=== PATIENT | female | born 2005 | race Caucasian/White ===

== ENCOUNTER 2024-03-03 20:57 | Inpatient (IN) | payer OTHER ==
--- NOTE | ~2024-03-03 | OR ---
[facility] [address], [place] [address] Draft DATE OF OPERATION: 03/04/2024 SURGEON: Temo Massey DO PREOPERATIVE DIAGNOSES: 1. Intrauterine at 34 weeks gestation. 2. Non-reassuring heart tracing. 3. Likely placental abruption. POSTOPERATIVE DIAGNOSES: 1. Intrauterine at 34 weeks gestation. 2. Placental abruption. 3. Nonreassuring heart tracing. PROCEDURES PERFORMED: Primary low transverse delivery. GUN BARREL FINISHER: Laure Hutson MD ANESTHESIA: Spinal with postoperative TAP block. ESTIMATED BLOOD LOSS: 800 mL. DRAINS: Brandon to gravity. FINDINGS: Delivery of viable female weighing 2280 g with Apgars of 2, 5 and 7. Hysterotomy was consistent with abruption noted. Delivery in the LOT position with no nuchal cord. Scant bleeding following delivery and an otherwise normal uterus, tubes, and ovaries. COMPLICATIONS: Abruption as above. INDICATIONS: Ms. Son is a very pleasant 18-year-old, G1, P0, with intrauterine at 34 PATIENT NAME: FREYA SON OPERATIVE REPORT DATE OF : 04 REPORT #: [id number] PHYSICIAN: TEMO MASSEY DO (JD) PCP: NO PRIMARY CARE PHYSICIAN REPORT IS CONFIDENTIAL AND NOT TO BE RELEASED WITHOUT AUTHORIZATION [facility] [address] [place] [id number] Draft weeks gestation, who presents to the Center for complaining of contractions and a scant amount of bleeding. The patient reports no abdominal trauma, but reports an increasing back pain and [place] tight contractions throughout the day. She soaked in an outdoor pool at home and then saw small amount of spotting and presented to [facility] for further evaluation. The patient was noted to be 0.5 cm dilated and was having irregular contractions. heart tracing had been overall reassuring and then the patient developed decelerations. I was called, evaluated the patient. An ultrasound was performed that demonstrated an intrauterine debris consistent with an abruption. Recommended primary low transverse delivery. Risks, benefits, and alternatives were discussed in detail with the patient. The patient understands and wishes to proceed with the procedure. TECHNIQUE: The patient is taken to the OR where a time-out was performed to confirm correct patient and correct procedure. Spinal anesthesia was adequately established. The patient was prepped and draped in the supine position with a bump in her right hip. Ancef 2 g preoperatively were given and no heparin was indicated. Brandon catheter was inserted. Once spinal was noted to be adequate, a Pfannenstiel skin incision was made approximately 2-3 cm above the pubic symphysis and carried down to the fascia. The fascia was nicked in the midline. Fascial incision was extended bilaterally using curved Hernandez scissors. Fascia was grasped with Benjamin's, elevated, and the underlying rectus dissected off bluntly and sharply. The rectus was divided in the midline with blunt dissection and peritoneal incision was extended cephalad caudad using blunt and sharp dissection. Leeroy self retractor was placed and the lower uterine segment identified. Hysterotomy was performed using a surgical scalpel and a large amount of amniotic fluid mixed with blood and blood clot was returned consistent with an abruption. Hysterotomy was extended bilaterally using blunt dissection. The surgeon's hand was placed in the uterine cavity and the quickly delivered with the assistance of fundal pressure. Cord was doubly clamped and cut and the handed to the waiting pediatric team for further care. The placenta was expressed, intact with a centrally inserted three-vessel cord and handed to the OR crew with concern for potential ongoing bleeding. The cord gases were ordered. The uterus was cleared of any remaining products of conception or clot and bleeding was scant at this point, with the uterus firm. Pitocin was administered per protocol. Hysterotomy was repaired in two layers using 0 Monocryl, the first being a running locked layer and the second being a running imbricating layer in the standard fashion. Excellent hemostasis was appreciated. The pelvis was irrigated and found to be hemostatic. Normal uterus, tubes, and ovaries were appreciated. The Leeroy self retractor was removed and hemostasis again appreciated. The peritoneum was reapproximated using 2-0 Vicryl in a running nonlocked manner. Rectus was made hemostatic with judicious use of Bovie electrocautery and the rectus muscles were plicated loosely in the midline using 0 Vicryl. Fascia was then reapproximated using 0 Vicryl in a running nonlocked manner. PATIENT NAME: FREYA SON OPERATIVE REPORT DATE OF : 04 REPORT #: [id number] PHYSICIAN: TEMO MASSEY (JUANA) DO PCP: NO PRIMARY CARE PHYSICIAN REPORT IS CONFIDENTIAL AND NOT TO BE RELEASED WITHOUT AUTHORIZATION [facility] [address], [place] [address] Draft Subcu was irrigated, made hemostatic with judicious use of Bovie electrocautery and reapproximated using 3-0 Vicryl. Skin was reapproximated using surgical boston and the uterus was crede'd for scant amount of blood. The patient remained in the OR for postoperative TAP blocks. At this point, I was alerted by the OR staff. The cord gases were unable to be obtained. Upon evaluation of the placenta, the cord had been clamped at both ends and no blood was noted in the cord at this point, and cord gases were unable to be drawn. Placenta blood was drawn for blood type. Sponge, needle, and instrument counts correct x2 at the end of the procedure. Dr. Hutson was present and participated in all real portions of the procedure. Temo Massey DO JMarcW/SONAML /[id number] Copies: ~ PATIENT NAME: FREYA SON OPERATIVE REPORT DATE OF : 04 REPORT #: [id number] PHYSICIAN: TEMO MASSEY DO (JD) PCP: NO PRIMARY CARE PHYSICIAN REPORT IS CONFIDENTIAL AND NOT TO BE RELEASED WITHOUT AUTHORIZATION
[2024-03-03] MEDS ORDERED: BETAMETHASONE SOD PHOS/ACETATE 6 MG/ML ML IM SCH (23:30)
[2024-03-03] MEDS ORDERED: MAGNESIUM HYDROXIDE/AL HYDROX 30 ML CUP PO PRN (23:45)
[2024-03-03] MEDS ORDERED: LACTATED RINGER'S 1,000 ML IV SCH (23:45)
[2024-03-03] MEDS ORDERED: OXYTOCIN/DEXTROSE 5% 20 UNITS/100 ML BAG IV SCH (23:45)
[2024-03-03] MEDS ORDERED: LACTATED RINGER'S 1,000 ML IV PRN (23:45)
[2024-03-03] MEDS ORDERED: CALCIUM CARBONATE 500 MG CHEW PO PRN (23:45)
[2024-03-03 23:54] LABS: EOSINOPHILS 0.4 % (0-6)
[2024-03-03 23:56] LABS: BASOPHILS 0.3 % (0-2); HEMATOCRIT 28.1 % (35.0-50.0); HEMOGLOBIN 9.5 g/dL (12.0-18.0); LYMPHOCYTES 18.1 % (24-44); MCH 30.2 (27-36); MCV 88.9 fl (81-99); MONOCYTES 8.7 % (0-12); NEUTROPHILS 72.5 % (39-80); PLATELET COUNT 182 K/uL (140-440); RBC 3.16 M/ul (4.3-5.7)
[2024-03-04 00:12] LABS: AMPHETAMINES, URINE NEGATIVE (NEGATIVE); BARBITURATES, URINE NEGATIVE (NEGATIVE); BENZODIAZEPINE, URINE NEGATIVE (NEGATIVE); BUPRENORPHINE, URINE NEGATIVE (NEGATIVE); CANNABINOID, URINE NEGATIVE (NEGATIVE); COCAINE, URINE NEGATIVE (NEGATIVE); ECSTASY, URINE NEGATIVE (NEGATIVE); FENTANYL, URINE NEGATIVE (NEGATIVE); METHADONE, URINE NEGATIVE (NEGATIVE); OPIATES, URINE NEGATIVE (NEGATIVE); OXYCODONE, URINE NEGATIVE (NEGATIVE); PHENCYCLIDINE, URINE NEGATIVE (NEGATIVE)
[2024-03-04] MEDS ORDERED: ondansetron HCL 4 MG/2 ML VIAL ONE (00:29)
[2024-03-04] MEDS ORDERED: DEXAMETHASONE SOD PHOS 4 MG/ML VIAL ONE ×2 (00:29→11:39)
[2024-03-04] MEDS ORDERED: SUCCINYLCHOLINE IN 0.9% NACL 200 MG/10 ML SYRINGE ONE (00:29)
[2024-03-04] MEDS ORDERED: propofoL 200 MG/20 ML VIAL ONE (00:29)
[2024-03-04] MEDS ORDERED: KETOROLAC TROMETHAMINE 30 MG/ML VIAL ONE (00:29)
[2024-03-04] MEDS ORDERED: OXYTOCIN 10 UNITS/ML VIAL ONE ×2 (00:29→01:17)
[2024-03-04] MEDS ORDERED: LIDOCAINE HCL 2% 5 ML SDV ONE ×2 (00:29→01:38)
[2024-03-04] MEDS ORDERED: BUPIVACAINE 0.75% IN DEXTROSE 2 ML AMP ONE (00:29)
[2024-03-04] MEDS ORDERED: fentaNYL citrate 100 MCG/2 ML VIAL ONE (00:30)
[2024-03-04] MEDS ORDERED: CEFAZOLIN SODIUM 2 GM/20 ML SYR IV SCH (00:40)
[2024-03-04] MEDS ORDERED: LACTATED RINGER'S 1,000 ML IV PRN (00:45)
[2024-03-04] MEDS ORDERED: SOD+POT BICARB/CITRIC ACID 2 EA TABLET.EFF PO ONE (00:45)
[2024-03-04 01:00] LABS: ABO O; ANTIBODY SCREEN POSITIVE; RH NEGATIVE
[2024-03-04 01:01] LABS: ANTIBODY IDENTIFICATION ANTI-D
[2024-03-04] MEDS ORDERED: SODIUM CHLORIDE 0.9% 20 ML IV ONE ×2 (01:06→11:39)
[2024-03-04] MEDS ORDERED: ePHEDrine sulfate 50 MG/ML AMP ONE (01:06)
[2024-03-04] MEDS ORDERED: PHENYLEPHRINE HCL 10 MG/ML VIAL ONE (01:06)
[2024-03-04] MEDS ORDERED: ACETAMINOPHEN 1,000 MG/100 ML VIAL ONE (01:12)
[2024-03-04] MEDS ORDERED: MIDAZOLAM HCL 2 MG/2 ML VIAL ONE (01:17)
[2024-03-04 01:51] LABS: PARTIAL THROMBOPLASTIN TIME 27.1 Sec (22.9-41.3)
[2024-03-04 01:52] LABS: INR 0.95 (0.80-1.30)
[2024-03-04] MEDS ORDERED: bisacodyL 10 MG SUPP PR PRN (02:15)
[2024-03-04] MEDS ORDERED: OXYTOCIN/0.9 % SODIUM CHLORIDE 500 ML IV SCH (02:15)
[2024-03-04] MEDS ORDERED: HYDROCODONE/ACETA 5/325 TAB PO PRN (02:15)
[2024-03-04] MEDS ORDERED: OXYCODONE/APAP 5/325 TAB PO PRN (02:15)
[2024-03-04] MEDS ORDERED: PROMETHAZINE HCL 25 MG TAB PO PRN (02:15)
[2024-03-04] MEDS ORDERED: PROMETHAZINE HCL 25 MG SUPP PR PRN (02:15)
[2024-03-04] MEDS ORDERED: OXYCODONE HCL 5 MG TAB PO PRN (02:15)
[2024-03-04] MEDS ORDERED: ondansetron HCL 4 MG/2 ML VIAL IV PRN ×3 (02:15→02:30)
[2024-03-04] MEDS ORDERED: METOCLOPRAMIDE HCL 10 MG/2 ML SDV IV PRN (02:15)
[2024-03-04] MEDS ORDERED: PROCHLORPERAZINE EDISYLATE 10 MG/2 ML VIAL IV PRN (02:15)
[2024-03-04] MEDS ORDERED: LACTATED RINGER'S 1,000 ML IV SCH (02:16)
[2024-03-04 02:24] LABS: HEMATOCRIT 25.7 % (35.0-50.0); HEMOGLOBIN 8.6 g/dL (12.0-18.0); MCH 29.8 (27-36); MCHC 33.4 g/dl (30-36); MCV 89.4 fl (81-99); RBC 2.88 M/ul (4.3-5.7); RDW 13.1 (10.5-15.0)
[2024-03-04] MEDS ORDERED: KETOROLAC TROMETHAMINE 30 MG/ML VIAL IV PRN (02:30)
[2024-03-04] MEDS ORDERED: IBLOOD GLUCOSE TEST STRIP 1 EA TEST VI PRN (02:30)
[2024-03-04] MEDS ORDERED: fentaNYL citrate 50 MCG/ML SDV IV PRN (02:30)
[2024-03-04] MEDS ORDERED: NALOXONE HCL 0.4 MG SYR IV PRN ×2 (02:30)
[2024-03-04] MEDS ORDERED: diphenhydrAMINE HCL 50 MG/ML VIAL IV PRN (02:30)
[2024-03-04] MEDS ORDERED: MORPHINE SULFATE 4 MG/ML VIAL IV PRN (02:30)
[2024-03-04] MEDS ORDERED: HYDROmorphone HCL 1 MG/ML SYR IV PRN (02:30)
--- NOTE | 2024-03-04 03:02 | NUR ---
03/04/24 0302 Diamond Tsang 0206 PT ARRIVED IN PACU WIDE AWAKE AND ASKING TO SEE BABY. FAMILY AT BEDSIDE. 0215 FOB AT BEDSIDE AND TALKING TO PT ABOUT BABY GOING TO [facility]. GRANDMA GOING WITH BABY. 0230 DR QUARLES AT BEDSIDE TALKING WITH FAMILY. ALL QUESTIONS ANSWERED. 0240 REPORT GIVEN TO [facility] RN IN NURSERY. BED PLUGGED IN.
[2024-03-04 06:37] VITALS: BP 117/60
[2024-03-04] MEDS ORDERED: SIMETHICONE 125 MG TABLET CHEWABLE PO SCH (07:00)
--- NOTE | 2024-03-04 07:29 | PR ---
[facility] [address], [place] [address] Signed PP Progress Notes Datetime Report Generated by CPN: 03/04/2024 07:29 SUBJECTIVE: [id number] Pain: Within Normal Limits Flatus: Yes Bowel Movement: No Vital Signs: [id number] Vital Signs: Reviewed; Within Normal Limits EXAM: Ongoing Cardiovascular: Normal Respiratory: Normal Abdomen/Uterus: Normal Lochia: Not Done Vulva/Perineum: Not Done Breasts: Not Done CVA Tenderness: Normal Extremities: Normal Incision: Normal Progress: Not Applicable Exam Comments: Fundus firm U-2 nontender. Incision bandaged and dry IMPRESSION/PLAN/PROCEDURES: [id number] Impression: Normal Progression Plan: Continue Present Management Other Plans: Awaiting morning CBC Progress Notes: Pt seen and examined. Doing well. Pain well controlled and lochia minimal. Brandon in place. No / pumping as transferred to NICU but will initiate pumping this AM. No fevers/chills. Awaiting CBC this AM. Continue routine care. Will check on pt later today. Anticipate d/c tomorrow. Signing Physician: Temo Massey DO Copies: ~ *Electronically Signed* 03/04/24 0729 TEMO MASSEY (JUANA) DO PATIENT NAME: FREYA SON PROGRESS NOTE DATE OF : 04 PHYSICIAN: TEMO MASSEY (JD) DO RPT #: [id number] REPORT IS CONFIDENTIAL AND NOT TO BE RELEASED WITHOUT AUTHORIZATION
[2024-03-04 07:37] LABS: HEMATOCRIT 27.3 % (35.0-50.0); HEMOGLOBIN 9.4 g/dL (12.0-18.0); MCH 30.5 (27-36); MCHC 34.5 g/dl (30-36); MCV 88.5 fl (81-99); RBC 3.08 M/ul (4.3-5.7); RDW 13.1 (10.5-15.0)
[2024-03-04] MEDS ORDERED: KETOROLAC TROMETHAMINE 30 MG/ML VIAL IV SCH (08:00)
[2024-03-04] MEDS ORDERED: SENNOSIDES/DOCUSATE 1 EA TAB PO SCH (09:00)
[2024-03-04] MEDS ORDERED: LIDOCAINE HCL 2% 20 MG/ML VIAL INJ ONE (11:39)
[2024-03-04] MEDS ORDERED: dexmedeTOMIDine HCl 200 MCG/2 ML VIAL ONE (11:39)
[2024-03-04] MEDS ORDERED: Ropivacaine HCl 0.5% 30 ML VIAL ONE (11:39)
[2024-03-04] MEDS ORDERED: ENOXAPARIN SODIUM 40 MG/0.4 ML SYR SUB-Q SCH (16:00)
--- NOTE | 2024-03-04 17:53 | PR ---
[facility] [address], [place] [address] Signed PP Progress Notes Datetime Report Generated by CPN: 03/04/2024 17:53 SUBJECTIVE: [id number] Pain: Within Normal Limits Nausea/Vomiting: Denies Flatus: Yes Bowel Movement: No Vital Signs: [id number] Vital Signs: Reviewed EXAM: Ongoing Cardiovascular: Normal Respiratory: Normal Abdomen/Uterus: Normal Lochia: Normal Vulva/Perineum: Not Done Breasts: Not Done CVA Tenderness: Normal Extremities: Normal Incision: Normal Progress: Not Applicable Exam Comments: Fundus firm U-2 nontender IMPRESSION/PLAN/PROCEDURES: [id number] Impression: Normal Progression Plan: Continue Present Management Other Plans: Awaiting morning CBC Progress Notes: Pt seen and examined. Doing well. Ambulating and tolerating full diet. Aquino in place. No lightheadedness / dizziness. Hgb improved this AM. Lochia and pain minimal. Desires d/c in the AM to be with her infant. Pt reports some anxiety and requesting medication to help. Will d/c LEFT hand IV, d/c aquino, ambulate, and start cyclobenzaprine 10mg PO TID prn anxiety. Signing Physician: Temo Massey DO Copies: ~ *Electronically Signed* 03/04/24 4860 TEMO MASSEY (JUANA) DO PATIENT NAME: FREYA SON PROGRESS NOTE DATE OF : 04 PHYSICIAN: TEMO MASSEY (JD) DO RPT #: [id number] REPORT IS CONFIDENTIAL AND NOT TO BE RELEASED WITHOUT AUTHORIZATION
[2024-03-04] MEDS ORDERED: CYCLOBENZAPRINE HCL 10 MG TAB PO PRN (18:00)
[2024-03-05] MEDS ORDERED: IBUPROFEN 600 MG TAB PO SCH (02:00)
[2024-03-05] MEDS ORDERED: LACTATED RINGER'S 1,000 ML IV SCH (05:00)
[2024-03-05 06:09] LABS: ABO O; ANTIBODY SCREEN POSITIVE; FETAL HEMOGLOBIN SCREEN NEGATIVE; RH NEGATIVE; RHIG STATUS CANDIDATE; RHIG VIAL 1 RG23003-K
[2024-03-05 06:10] LABS: ANTIBODY IDENTIFICATION ANTI-D; RHIG DOSE 1
[2024-03-05 07:06] LABS: HEMATOCRIT 22.4 % (35.0-50.0); HEMOGLOBIN 7.6 g/dL (12.0-18.0); MCH 30.7 (27-36); MCHC 34.2 g/dl (30-36); MCV 89.7 fl (81-99); RBC 2.5 M/ul (4.3-5.7); RDW 13.1 (10.5-15.0)
--- NOTE | 2024-03-05 07:16 | PR ---
[facility] [address] [place], [place] [address] Signed PP Progress Notes Datetime Report Generated by CPN: 03/05/2024 07:16 SUBJECTIVE: [id number] Pain: Within Normal Limits Nausea/Vomiting: Denies Flatus: Yes Bowel Movement: No Vital Signs: [id number] Vital Signs: Reviewed; Within Normal Limits EXAM: Ongoing Cardiovascular: Normal Respiratory: Normal Abdomen/Uterus: Normal Lochia: Normal Vulva/Perineum: Not Done Breasts: Not Done CVA Tenderness: Normal Extremities: Normal Incision: Normal Progress: Normal Exam Comments: Fundus firm U-2 nontender. Incision healing well. IMPRESSION/PLAN/PROCEDURES: [id number] Impression: Normal Progression Plan: Discharge Other Plans: Awaiting morning CBC Progress Notes: Pt seen and examined. Doing very well. Reports some anxiety but coping well. Desires starting Zoloft. Ambulating, voiding, and tolerating full diet. Pain and lochia minimal. Starting pumping. Looking forward to seeing baby in NICU today. F/U Sunday for staple removal. Reviewed d/c medications and instruction Signing Physician: Temo Massey DO Copies: ~ *Electronically Signed* 03/05/24 0716 TEMO MASSEY (JUANA) DO PATIENT NAME: FREYA SON PROGRESS NOTE DATE OF : 04 PHYSICIAN: TEMO MASSEY (JD) DO RPT #: [id number] REPORT IS CONFIDENTIAL AND NOT TO BE RELEASED WITHOUT AUTHORIZATION
--- NOTE | 2024-03-07 11:52 | PATH ---
[facility] [address] [facility] [place], [place] [address] Signed SPECIMEN(S): A PLACENTA SPECIMEN SOURCE: A. PLACENTA CLINICAL HISTORY: Placental abruption FINAL PATHOLOGIC DIAGNOSIS: Placenta, delivery: - Mature hein placenta (421 grams) - Acute chorioamnionitis (grade 2/2; stage 2/3) without inflammatory response - Interpretation limited by absence of umbilical cord BRP MICROSCOPIC EXAMINATION: Histologic sections of all submitted blocks are examined by light microscopy. These findings, together with the gross examination, support the pathologic diagnosis. GROSS DESCRIPTION: The specimen, labeled and designated "stella Son," is received in formalin and consists of hein discoid placenta with the following parameters: Umbilical cord: No umbilical cord segment is received, possible point of previous attachment is eccentric. Membranes: Insertion site: Marginal, esquivel to red-brown fragmented and opaque. Other: Not grossly identified. Chorionic Plate: Normal radiating vascular pattern, blue-purple and shiny. Lesions: Not grossly identified. Other: Not grossly identified. Maternal Surface: Brown-esquivel superficially disrupted cotyledons. Lesions: Not grossly identified. Measurement: 16.0 x 15.0 x 3.2 cm. 421 g Cut Surface: Maroon and spongy. Lesions: Not grossly identified. Basal plate fibrin 0.1 cm in thickness. Other Findings: Not grossly identified. Cassette Summary: (A1) membranes and umbilical cord (A2) placenta parenchyma (A3) placenta parenchyma PATIENT NAME: ADELAIDAFREYA Kumar PATHOLOGY DATE OF : 04 REPORT #: [id number] PHYSICIAN: JAZZMINE TIDWELL PCP: NO PRIMARY CARE PHYSICIAN REPORT IS CONFIDENTIAL AND NOT TO BE RELEASED WITHOUT AUTHORIZATION [facility] [address] [facility] [place], [place] [address] Signed (A4) placenta parenchyma AC (under the direct supervision of a pathologist) The Gross Description was prepared using a voice recognition system. The report was reviewed for accuracy; however, sound-alike word errors, addition and/or deletions may occur. If there is any question about this report, please contact Client Services. ADDITIONAL NOTES: Immunohistochemical and/or in situ hybridization studies if performed in this case included appropriate positive controls that reacted as expected. This test was developed and its performance characteristics determined by [facility] [facility]. It has not been cleared or approved by the U.S. Food and Drug Administration. The FDA has determined that such clearance or approval is not necessary. This test is used for clinical purposes. It should not be regarded as investigational or for research. [facility] is certified under the Clinical Laboratory Improvement Amendments of 1988 (CLIA) as qualified to perform high complexity clinical laboratory testing. PERFORMING LABORATORY: Technical component was performed by [facility], [address] [place] [address] (CLIA# [id number]). Professional interpretation was performed by [facility] [address] [place] [id number] Diagnostician: Hernan Platt MD Pathologist Electronically Signed 03/07/2024 Copies: ~ PATIENT NAME: FREYA SON PATHOLOGY DATE OF : 04 REPORT #: [id number] PHYSICIAN: JAZZMINE PATHOLOGY PCP: NO PRIMARY CARE PHYSICIAN REPORT IS CONFIDENTIAL AND NOT TO BE RELEASED WITHOUT AUTHORIZATION
== END 2024-03-05 10:45 | disposition home or self-care (01) | DRG 786 ==
LOC: FBCO 20:57 → FBC 23:44
PROVIDERS: Obstetrics & Gynecology; ADMIT Obstetrics & Gynecology; ATTEND Obstetrics & Gynecology
PROC: 10D00Z1 Extraction of Products of Conception, Low, Open Approach (ICD-10-PCS; principal; 2024-03-04 00:58)
DX: O76 Abnormality in fetal heart rate and rhythm complicating labor and delivery (principal); O45.93 Premature separation of placenta, unspecified, third trimester; O60.14X0 Preterm labor third trimester with preterm delivery third trimester, not applicable or unspecified; Z3A.34 34 weeks gestation of pregnancy; Z37.0 Single live birth; O99.334 Smoking (tobacco) complicating childbirth; F17.210 Nicotine dependence, cigarettes, uncomplicated
CPT/HCPCS: 01961; 36415; 76815; 76942; 80307; 83030; 85025; 85027; 85060; 85384; 85610; 85730; 86850; 86870; 86900; 86901; 88307; A9270; J0131; J0330; J0690; J0702; J1100; J1650; J1885; J2001; J2250; J2371; J2405; J2590; J2704; J2790; J2795; J3010; J7121